=== PATIENT | female | born 1995 | race American Indian/Alaskan Native ===

== ENCOUNTER 2019-03-10 15:51 | Emergency (ER) | payer SELFPAY ==
[2019-03-10 16:18] VITALS: BP 118/80
--- NOTE | 2019-03-10 16:18 | Emergency Department Report ---
Blank Doc - Documentation Documentation: pt presents with light-headedness that began a couple today denies any N/V/D states she has not had anything to drink since yesterday no abd pain no urinary sx LNMP January 28 pt is currently 6 no vaginal bleeding states this is her first states she saw an [facility] DRIVER at [place] and had an US performed at [place], US normal per pt PMHx asthma and seizures no allergies to medications non smoker +drinker no drug use
[2019-03-10 16:37] LABS: Basophils % (Auto) 0.5 % (0.0-1.8); Eosinophils % (Auto) 0.4 % (0.0-4.3); Hematocrit 36.7 % (30.3-42.9); Hemoglobin 12.9 gm/dl (10.1-14.3); Lymphocytes # (Auto) 2.9 K/mm3 (1.2-5.4); Lymphocytes % (Auto) 33.4 % (13.4-35.0); Mean Corpuscular HGB Conc 35 % (30-34); Mean Corpuscular Volume 93 fl (79-97); Monocytes # (Auto) 0.5 K/mm3 (0.0-0.8); Monocytes % (Auto) 5.7 % (0.0-7.3); Platelet Count 271 K/mm3 (140-440); Red Blood Count 3.96 M/mm3 (3.65-5.03); Red Cell Distribution Width 13.3 % (13.2-15.2)
[2019-03-10 16:52] LABS: BUN/Creatinine Ratio 11; Blood Urea Nitrogen 9 mg/dL (7-17); Calcium 9.7 mg/dL (8.4-10.2); Hemolysis Index 22
== END 2019-03-10 16:55 | disposition left against medical advice (07) ==
LOC: ED 15:51
DX: R42 Dizziness and giddiness (principal); Z53.21 Procedure and treatment not carried out due to patient leaving prior to being seen by health care provider
CPT/HCPCS: 36415; 80048; 84702; 85025